=== PATIENT | female | born 1935 | race Caucasian/White ===

== ENCOUNTER 2018-07-10 10:37 | Emergency (ER) | payer MEDICARE, BC ==
[~2018-07-10] VITALS: Ht 167.6 cm; Wt 51.2 kg
[2018-07-10] MEDS ORDERED: ketorolac trometh inj. 60 MG/2 ML VIAL IM ONE (11:05)
[2018-07-10] MEDS ORDERED: morphine 4 MG/ML inj SYRINge IM ONE (11:05)
[2018-07-10] MEDS ORDERED: diazepam 5mg tablet PO ONE (11:05)
[2018-07-10] MEDS ORDERED: TRAM50TA2 PO (11:15)
[2018-07-10] MEDS ORDERED: CYCL-1 PO (11:15)
[2018-07-10 12:05] VITALS: BP 178/88
== END 2018-07-10 12:11 | disposition home or self-care (01) ==
LOC: ER 10:38
DX: G89.29 Other chronic pain (principal); M54.41 Lumbago with sciatica, right side; Z88.6 Allergy status to analgesic agent; Z79.899 Other long term (current) drug therapy
CPT/HCPCS: 96372; 99284; J1885; J2270

== ENCOUNTER 2021-02-08 15:20 | Emergency (ER) | payer MEDICARE, BC ==
[~2021-02-08] VITALS: Ht 167.6 cm; Wt 68.2 kg
[~2021-02-08 15:20] MED LIST: CYCL-1 PO
[2021-02-08] MEDS ORDERED: diltiazem 5mg/ml 5ml inj. IV ONE (16:10)
[2021-02-08 16:11] LABS: BASOPHILS % (AUTO) 0.6 % (0-1); EOSINOPHILS # (AUTO) 0.1 X10'3 (0-0.9); EOSINOPHILS % (AUTO) 1.3 % (0-6); HEMATOCRIT 39.5 % (35.0-45.0); HEMOGLOBIN 13.3 g/dl (12.0-16.0); LYMPHOCYTES # (AUTO) 1.5 X10'3 (1.1-4.8); LYMPHOCYTES % (AUTO) 23.8 % (21-51); MEAN CORPUSCULAR HEMOGLOBIN 31.7 PG (27.0-31.0); MEAN CORPUSCULAR HGB CONC 33.7 g/dL (33.0-36.5); MEAN PLATELET VOLUME 7.2 FL (7.4-10.4); MONOCYTES # (AUTO) 0.6 X10'3 (0-0.9); MONOCYTES % (AUTO) 9.8 % (2-12); NEUTROPHILS # (AUTO) 4.1 X10'3 (1.8-7.7); NEUTROPHILS % (AUTO) 64.5 % (42-75); PLATELET COUNT 266 X10'3 (140-440); RED CELL DISTRIBUTION WIDTH 15.8 % (11.5-14.5); WHITE BLOOD COUNT 6.4 X10'3 (4.5-11.0)
[2021-02-08 16:24] LABS: ALANINE AMINOTRANSFERASE 84 U/L (12-78); ALBUMIN/GLOBULIN RATIO 1.1 (1.1-1.5); ALKALINE PHOSPHATASE 104 IU/L (46-116); ANION GAP 9 (8-16); ASPARTATE AMINO TRANSFERASE 54 U/L (10-37); BILIRUBIN,TOTAL 0.5 MG/DL (0.1-1.0); BLOOD UREA NITROGEN 10 MG/DL (7-18); BUN/CREATININE RATIO 17.2 (6.6-38.0); CALCIUM 8.6 MG/DL (8.5-10.1); CHLORIDE 95 MMOL/L (99-107); CREATININE 0.58 MG/DL (0.40-0.90); GLUCOSE 102 MG/DL (70-104); MAGNESIUM 2.1 MG/DL (1.5-2.4); POTASSIUM 4.3 MMOL/L (3.5-5.1); SODIUM 130 MMOL/L (135-145); TOTAL CARBON DIOXIDE 25.7 MMOL/L (24-32); TOTAL PROTEIN 7.5 G/DL (6.4-8.2); eGFR > 90 ML/MIN
[2021-02-08] MEDS ORDERED: AMIO200T61 PO (16:47)
[2021-02-08 17:54] VITALS: BP 164/114
== END 2021-02-08 17:56 | disposition home or self-care (01) ==
LOC: ER 15:21
DX: I48.92 Unspecified atrial flutter (principal); R00.0 Tachycardia, unspecified; I10 Essential (primary) hypertension; Z88.1 Allergy status to other antibiotic agents; Z88.8 Allergy status to other drugs, medicaments and biological substances; Z79.899 Other long term (current) drug therapy
CPT/HCPCS: 36415; 71045; 80053; 83735; 85025; 93005; 96374; 99285; J3490

== ENCOUNTER 2021-02-09 13:20 | Emergency (ER) | payer MEDICARE, BC ==
[~2021-02-09] VITALS: Ht 167.6 cm; Wt 65.7 kg
[~2021-02-09 13:20] MED LIST changes: +AMIO200T61 PO
[2021-02-09] MEDS ORDERED: diltiazem 5mg/ml 5ml inj. IV ONE ×3 (14:20→17:25)
[2021-02-09] MEDS ORDERED: aspirin 81mg tab.chew PO ONE (14:20)
[2021-02-09 15:00] LABS: BASOPHILS # (AUTO) 0.1 X10'3 (0-0.2); BASOPHILS % (AUTO) 0.7 % (0-1); EOSINOPHILS # (AUTO) 0.1 X10'3 (0-0.9); EOSINOPHILS % (AUTO) 1.4 % (0-6); HEMATOCRIT 38.9 % (35.0-45.0); HEMOGLOBIN 13.1 g/dl (12.0-16.0); LYMPHOCYTES # (AUTO) 1.4 X10'3 (1.1-4.8); LYMPHOCYTES % (AUTO) 19.6 % (21-51); MEAN CORPUSCULAR HEMOGLOBIN 31.6 PG (27.0-31.0); MEAN CORPUSCULAR HGB CONC 33.6 g/dL (33.0-36.5); MEAN CORPUSCULAR VOLUME 94.2 FL (78-98); MONOCYTES # (AUTO) 0.7 X10'3 (0-0.9); MONOCYTES % (AUTO) 10.1 % (2-12); NEUTROPHILS # (AUTO) 4.7 X10'3 (1.8-7.7); NEUTROPHILS % (AUTO) 68.2 % (42-75); PLATELET COUNT 293 X10'3 (140-440); RED BLOOD COUNT 4.13 X10'6 (4.20-5.60); RED CELL DISTRIBUTION WIDTH 15.7 % (11.5-14.5); WHITE BLOOD COUNT 6.9 X10'3 (4.5-11.0)
--- NOTE | 2021-02-09 15:00 | NUR ---
VISITING ABRIL [phone], CHITRA CELL [phone]
[2021-02-09 15:13] LABS: PARTIAL THROMBOPLASTIN TIME 26 SECONDS (22-32)
[2021-02-09 15:35] LABS: ALANINE AMINOTRANSFERASE 73 U/L (12-78); ALBUMIN 3.8 G/DL (3.4-5.0); ALBUMIN/GLOBULIN RATIO 1.1 (1.1-1.5); ALKALINE PHOSPHATASE 101 IU/L (46-116); ANION GAP 9 (8-16); ASPARTATE AMINO TRANSFERASE 48 U/L (10-37); BILIRUBIN,TOTAL 0.6 MG/DL (0.1-1.0); BLOOD UREA NITROGEN 13 MG/DL (7-18); CALCIUM 8.9 MG/DL (8.5-10.1); CHLORIDE 97 MMOL/L (99-107); CREATININE 0.52 MG/DL (0.40-0.90); GLUCOSE 100 MG/DL (70-104); SODIUM 130 MMOL/L (135-145); TOTAL CARBON DIOXIDE 23.6 MMOL/L (24-32); TOTAL PROTEIN 7.3 G/DL (6.4-8.2); eGFR > 90 ML/MIN
[2021-02-09 15:41] LABS: MAGNESIUM 2.3 MG/DL (1.5-2.4)
[2021-02-09 15:42] LABS: POTASSIUM 4.5 MMOL/L (3.5-5.1)
[2021-02-09] MEDS ORDERED: amiodarone 150mg/dext, iso-os 100 ML IV ONE (16:05)
[2021-02-09] MEDS ORDERED: amiodarone 200mg tablet PO ONE (17:25)
[2021-02-09 18:26] VITALS: BP 122/85
== END 2021-02-09 18:33 | disposition home or self-care (01) ==
LOC: ER 13:21
DX: I48.92 Unspecified atrial flutter (principal); I10 Essential (primary) hypertension; Z79.82 Long term (current) use of aspirin; Z88.0 Allergy status to penicillin; Z88.1 Allergy status to other antibiotic agents; Z88.2 Allergy status to sulfonamides; Z79.899 Other long term (current) drug therapy
CPT/HCPCS: 36415; 71045; 80053; 83735; 83880; 84484; 85025; 85610; 85730; 93005; 96365; 96366; 96375; 96376; 99285; J3490

== ENCOUNTER 2021-03-09 06:07 | Day surgery (SDC) | payer MEDICARE, BC ==
[2021-03-04 10:02] LABS: BASOPHILS # (AUTO) 0.1 X10'3 (0-0.2); BASOPHILS % (AUTO) 1.4 % (0-1); EOSINOPHILS # (AUTO) 0.1 X10'3 (0-0.9); EOSINOPHILS % (AUTO) 1.3 % (0-6); HEMOGLOBIN 14.5 g/dl (12.0-16.0); LYMPHOCYTES # (AUTO) 1.2 X10'3 (1.1-4.8); LYMPHOCYTES % (AUTO) 22.5 % (21-51); MEAN CORPUSCULAR HEMOGLOBIN 31.4 PG (27.0-31.0); MEAN CORPUSCULAR HGB CONC 33.7 g/dL (33.0-36.5); MEAN PLATELET VOLUME 7.1 FL (7.4-10.4); MONOCYTES # (AUTO) 0.6 X10'3 (0-0.9); MONOCYTES % (AUTO) 10.7 % (2-12); NEUTROPHILS # (AUTO) 3.6 X10'3 (1.8-7.7); NEUTROPHILS % (AUTO) 64.1 % (42-75); PLATELET COUNT 300 X10'3 (140-440); RED BLOOD COUNT 4.62 X10'6 (4.20-5.60); RED CELL DISTRIBUTION WIDTH 15.5 % (11.5-14.5); WHITE BLOOD COUNT 5.6 X10'3 (4.5-11.0)
[2021-03-04 10:11] LABS: ANION GAP 8 (8-16); BLOOD UREA NITROGEN 9 MG/DL (7-18); BUN/CREATININE RATIO 12.2 (6.6-38.0); CHLORIDE 99 MMOL/L (99-107); CREATININE 0.74 MG/DL (0.40-0.90); GLUCOSE 100 MG/DL (70-104); POTASSIUM 3.9 MMOL/L (3.5-5.1); SODIUM 137 MMOL/L (135-145); eGFR 75 ML/MIN
[2021-03-04 10:15] LABS: PARTIAL THROMBOPLASTIN TIME 32 SECONDS (22-32)
[2021-03-09] VITALS (9 sets, daily range): BP systolic 84–182; BP diastolic 46–121
[~2021-03-09] VITALS: Ht 167.6 cm; Wt 63.0 kg
[2021-03-09] MEDS ORDERED: normal saline 1000ml 1,000 ML IV SCH (06:40)
[2021-03-09] MEDS ORDERED: fentaNYL/PF 50MCG/1 ML 2ML syringe IV ONE (06:40)
[2021-03-09] MEDS ORDERED: MIDAZolam 1mg/ml 10ml vial IV ONE (06:40)
[2021-03-09] MEDS ORDERED: metoprolol tartrate 1mg/ml inj IV ONE (06:50)
[2021-03-09] MEDS ORDERED: LOSA25TA96 PO (07:01)
[2021-03-09] MEDS ORDERED: AMIO200T61 PO (07:01)
[2021-03-09] MEDS ORDERED: CETI-90 PO (07:01)
[2021-03-09] MEDS ORDERED: PANT-47 PO (07:01)
[2021-03-09] MEDS ORDERED: METO-467 PO (07:01)
[2021-03-09] MEDS ORDERED: GLUC-95 PO (07:01)
[2021-03-09] MEDS ORDERED: ASPI-1265 PO (07:01)
[2021-03-09] MEDS ORDERED: APIX5TAB3 PO (07:01)
[2021-03-09] MEDS ORDERED: AZEL137S4 BOTHNARES (07:01)
[2021-03-09] MEDS ORDERED: MONT10TA32 PO (07:01)
[2021-03-09] MEDS ORDERED: CALC-854 PO (07:01)
[2021-03-09] MEDS ORDERED: MAGN296S68 PO (07:01)
[2021-03-09] MEDS ORDERED: BETA1TAB20 PO (07:01)
[2021-03-09] MEDS ORDERED: ACET-1025 PO (07:01)
[2021-03-09] MEDS ORDERED: PUMP300C PO (07:01)
== END 2021-03-09 10:15 | disposition home or self-care (01) ==
LOC: SSTAY O 06:07
PROVIDERS: ATTEND Internal Medicine Interventional Cardiology
DX: I48.3 Typical atrial flutter (principal); I47.1 Supraventricular tachycardia; I10 Essential (primary) hypertension; M81.0 Age-related osteoporosis without current pathological fracture; K21.9 Gastro-esophageal reflux disease without esophagitis; J45.909 Unspecified asthma, uncomplicated; Z88.0 Allergy status to penicillin; Z88.8 Allergy status to other drugs, medicaments and biological substances; Z79.01 Long term (current) use of anticoagulants; Z88.1 Allergy status to other antibiotic agents; Z88.2 Allergy status to sulfonamides; Z79.899 Other long term (current) drug therapy
CPT/HCPCS: 36415; 80048; 85025; 85610; 85730; 92960; 93005; 94760; 94799; J2250; J3010; J7030; J3490

== ENCOUNTER 2021-04-20 11:03 | Day surgery (SDC) | payer MEDICARE, BC ==
[2021-04-20] VITALS (10 sets, daily range): BP systolic 116–169; BP diastolic 66–108
[~2021-04-20] VITALS: Ht 167.6 cm; Wt 62.8 kg
[~2021-04-20 11:03] MED LIST changes: +ACET-1025 PO; +APIX5TAB3 PO; +ASPI-1265 PO; +AZEL137S4 BOTHNARES; +BETA1TAB20 PO; +CALC-854 PO; +CETI-90 PO; -CYCL-1 PO; +GLUC-95 PO; +LOSA25TA96 PO; +MAGN296S68 PO; +METO-467 PO; +MONT10TA32 PO; +PANT-47 PO; +PUMP300C PO
[2021-04-20] MEDS ORDERED: fentaNYL/PF 50MCG/1 ML 2ML syringe IV ONE (11:35)
[2021-04-20] MEDS ORDERED: MIDAZolam 1mg/ml 10ml vial IV ONE (11:35)
[2021-04-20] MEDS ORDERED: normal saline 1000ml 1,000 ML IV SCH (11:35)
[2021-04-20 12:11] LABS: BASOPHILS # (AUTO) 0.1 X10'3 (0-0.2); BASOPHILS % (AUTO) 0.9 % (0-1); EOSINOPHILS # (AUTO) 0.1 X10'3 (0-0.9); EOSINOPHILS % (AUTO) 0.9 % (0-6); HEMATOCRIT 42.2 % (35.0-45.0); HEMOGLOBIN 14.2 g/dl (12.0-16.0); LYMPHOCYTES # (AUTO) 1.3 X10'3 (1.1-4.8); LYMPHOCYTES % (AUTO) 20.3 % (21-51); MEAN CORPUSCULAR HEMOGLOBIN 30.6 PG (27.0-31.0); MEAN CORPUSCULAR HGB CONC 33.7 g/dL (33.0-36.5); MEAN CORPUSCULAR VOLUME 90.9 FL (78-98); MEAN PLATELET VOLUME 7.4 FL (7.4-10.4); MONOCYTES # (AUTO) 0.6 X10'3 (0-0.9); MONOCYTES % (AUTO) 9.1 % (2-12); NEUTROPHILS # (AUTO) 4.3 X10'3 (1.8-7.7); NEUTROPHILS % (AUTO) 68.8 % (42-75); PLATELET COUNT 272 X10'3 (140-440); RED BLOOD COUNT 4.64 X10'6 (4.20-5.60); RED CELL DISTRIBUTION WIDTH 15.6 % (11.5-14.5); WHITE BLOOD COUNT 6.2 X10'3 (4.5-11.0)
[2021-04-20 12:19] LABS: ALBUMIN 3.9 G/DL (3.4-5.0); ANION GAP 10 (8-16); BLOOD UREA NITROGEN 13 MG/DL (7-18); BUN/CREATININE RATIO 15.5 (6.6-38.0); CALCIUM 8.8 MG/DL (8.5-10.1); CHLORIDE 97 MMOL/L (99-107); CREATININE 0.84 MG/DL (0.40-0.90); GLUCOSE 102 MG/DL (70-104); POTASSIUM 3.7 MMOL/L (3.5-5.1); SODIUM 132 MMOL/L (135-145); TOTAL CARBON DIOXIDE 24.8 MMOL/L (24-32); eGFR 64 ML/MIN
[2021-04-20 12:22] LABS: PARTIAL THROMBOPLASTIN TIME 33 SECONDS (22-32)
== END 2021-04-20 15:05 | disposition home or self-care (01) ==
LOC: SSTAY O 11:03
PROVIDERS: ATTEND Internal Medicine Interventional Cardiology
DX: I48.91 Unspecified atrial fibrillation (principal); I48.3 Typical atrial flutter; M81.0 Age-related osteoporosis without current pathological fracture; K21.9 Gastro-esophageal reflux disease without esophagitis; I47.1 Supraventricular tachycardia; J45.909 Unspecified asthma, uncomplicated; Z88.2 Allergy status to sulfonamides; Z88.0 Allergy status to penicillin; Z88.8 Allergy status to other drugs, medicaments and biological substances; Z88.1 Allergy status to other antibiotic agents; Z79.899 Other long term (current) drug therapy; Z79.01 Long term (current) use of anticoagulants
CPT/HCPCS: 36415; 80048; 85025; 85610; 85730; 92960; 93005; 94760; 94799; J2250; J3010; J7030

== ENCOUNTER 2025-07-24 14:26 | Outpatient (CLI) | payer MEDICARE, BC ==
[~2025-07-24] VITALS: Ht 167.6 cm; Wt 59.0 kg
[~2025-07-24 14:26] MED LIST changes: -AMIO200T61 PO; +AMIO200T76 PO; -CALC-854 PO; +LOSA-415 PO; -LOSA25TA96 PO; +MONT-40 PO; -MONT10TA32 PO
[2025-07-24 15:07] LABS: TOTAL HEMOGLOBIN 15.2 G/dl (12.0-16.0)
[2025-07-24 15:10] VITALS: PULSE 58; RESP 16; O2SAT 98
[2025-07-24] MEDS: albuterol 2.5 MG/3 ML nebule NEB ONE (15:40)
[2025-07-24 16:09] VITALS: PULSE 68; RESP 20
== END 2025-07-24 23:59 | disposition home or self-care (01) ==
LOC: RT 14:26
PROVIDERS: ATTEND Specialist
DX: J44.9 Chronic obstructive pulmonary disease, unspecified (principal); Z79.899 Other long term (current) drug therapy
CPT/HCPCS: 85018; 94060; 94727; 94729; 94760